=== PATIENT | male | born 1985 | race Caucasian/White ===

== ENCOUNTER → 2017-07-14 13:37 | Emergency (ER) | payer SELFPAY ==
[~2017-07-14 13:37] MED LIST: KCL 10 MEQ/50 ML IVPREMIX* 10 MEQ/50 ML BAG IV SCH; KCL 10 MEQ/50 ML IVPREMIX* 20 MEQ/100 ML BAG ONE; KCL 20 MEQ/100 ML IVPREMIX* 20 MEQ/100 ML BAG IV ONE; NS 0.9% 1000 ML* 1,000 ML IV ONE
[2017-07-14 16:51] LABS: INR 1.87 (0.77-1.02)
[2017-07-14 17:00] LABS: Hematocrit 20 % (42-52); Mean Corpuscular HGB Conc 32 g/dl (31-36); Mean Corpuscular Hemoglobin 25 pg (27-31); Mean Corpuscular Volume 78 fL (80-94); Mean Platelet Volume 8.3 um3 (7.4-10.4); Platelet Count 269 10^3/ul (150-450); Red Cell Distribution Width 26 % (10.5-15)
[2017-07-14 17:03] LABS: EGFR Non-African American 135.1 (>60)
[2017-07-14 17:40] LABS: ABS Basophils 0 10^3/ul (0-0.2); ABS Eosinophils 0 10^3/ul (0-0.6); ABS Lymphocytes 0.5 10^3/ul (1.0-4.8); ABS Neutrophils 8.5 10^3/ul (1.5-7.7); ABS Nucleated RBC 0 10^3/ul; Eosinophil % 0 % (0-6); Lymphocyte % 4.8 % (25-47); Nucleated Red Blood Cells % 0
--- NOTE | 2017-07-14 18:39 | ED ---
Keli Bucio Thomas, scribed for Jhon Black MD on 07/14/17 at 1633 . Skin Complaint - HPI Summary HPI Summary: The patient is a 31 year old male presenting to the emergency department at the advice of his co-workers, who noted his skin and eyes to be yellowish. He does not have any complaints at this time. He says that he only drinks two beers per day. 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 - History of Current Complaint Chief Complaint: EDGeneral Time Seen by Provider: 07/14/17 16:03 Stated Complaint: GENERAL Hx Obtained From: Patient Onset/Duration: Still Present Timing: Constant Current Severity: Mild Pain Intensity: 0 Pain Scale Used: 0-10 Numeric Skin Location: Other: - Diffuse yellow Aggravating Symptom(s): Nothing Alleviating Symptom(s): Nothing Associated Signs & Symptoms: Negative - no symptoms - Allergy/Home Medications Allergies/Adverse Reactions: Allergies Allergy/AdvReac Type Severity Reaction Status Date / Time No Known Allergies Allergy Verified 07/14/17 13:44 Home Medications: Home Medications NK [No Home Medications Reported] 07/14/17 [History Confirmed 07/14/17] PMH/Surg Hx/FS Hx/Imm Hx Endocrine/Hematology History: Denies: Hx Diabetes Cardiovascular History: Denies: Hx Hypertension Infectious Disease History: No Infectious Disease History: Denies: Traveled Outside the [place] in Last 30 Days - Family History Known Family History: Negative: Respiratory Disease - Social History Occupation: Employed Full-time Lives: Alone Alcohol Use: Daily Review of Systems Positive: Fever Positive: Other - Yellow skin All Other Systems Reviewed And Are Negative: Yes Physical Exam - Summary Physical Exam Summary: Appearance: The patient is well-nourished in no acute distress and in no acute pain. Skin: The skin is warm and dry. He is jaundiced. HEENT: The head is normocephalic and atraumatic. The pupils are equal and reactive. The sclerae are icteric. Nares are patent and without drainage. Mouth reveals moist mucous membranes and the throat is without erythema and exudate. The external ears are intact. The ear canals are patent and without drainage. The tympanic membranes are intact. He has poor dentition. Neck: the neck is supple with full range of motion and non-tender. There are no carotid bruits. There is no neck vein distension. Respiratory: Chest is non-tender. Lungs are clear to auscultation and breath sounds are symmetrical and equal. Cardiovascular: Heart is regular rate and rhythm. There is no murmur or rub auscultated. There is no peripheral edema and pulses are symmetrical and equal. Abdomen: The abdomen is soft and non-tender. There are normal bowel sounds heard in all four quadrants and there is no organomegaly palpated. Rectal exam: there are not any hemorrhoids. There is brown stool on the glove. Musculoskeletal: There is no back tenderness noted. Extremities are non-tender with full range of motion. There is good capillary refill. There is no peripheral edema or calf tenderness elicited. Neurological: Patient is alert and oriented to person, place and time. The patient has symmetrical motor strength in all four extremities. Cranial nerves are grossly intact. Deep tendon reflexes are symmetrical and equal in all four extremities. Psychiatric: The patient has an appropriate affect and does not exhibit any anxiety or depression. Triage Information Reviewed: Yes Vital Signs On Initial Exam: Initial Vitals Temp Pulse Resp BP Pulse Ox 100.1 F 126 18 149/77 97 07/14/17 13:40 07/14/17 13:40 07/14/17 13:40 07/14/17 13:40 07/14/17 13:40 Vital Signs Reviewed: Yes Diagnostics - Vital Signs Vital Signs Temp Pulse Resp BP Pulse Ox 07/14/17 15:32 98.5 F 119 18 132/76 100 07/14/17 13:40 100.1 F 126 18 149/77 97 - Laboratory Lab Results: Lab Results 07/14/17 07/14/17 07/14/17 Range/Units 16:35 16:35 16:35 WBC 10.0 (3.5-10.8) 10^3/ul RBC 2.50 L (4.0-5.4) 10^6/ul Hgb 6.2 L* (14.0-18.0) g/dl Hct 20 L (42-52) % MCV 78 L (80-94) fL MCH 25 L (27-31) pg MCHC 32 (31-36) g/dl RDW 26 H (10.5-15) % Plt Count 269 (150-450) 10^3/ul MPV 8.3 (7.4-10.4) um3 Neut % (Auto) 85.3 H (38-83) % Lymph % (Auto) 4.8 L (25-47) % Fult[place] % (Auto) 9.6 H (0-7) % Eos % (Auto) 0 (0-6) % Baso % (Auto) 0.3 (0-2) % Absolute Neuts (auto) 8.5 H (1.5-7.7) 10^3/ul Absolute Lymphs (auto) 0.5 L (1.0-4.8) 10^3/ul Absolute Monos (auto) 1.0 H (0-0.8) 10^3/ul Absolute Eos (auto) 0 (0-0.6) 10^3/ul Absolute Basos (auto) 0 (0-0.2) 10^3/ul Absolute Nucleated RBC 0 10^3/ul Neutrophils % Not Reportable Nucleated RBC % 0 Normal RBC Morphology Not Reportable Polychromasia 2+ Hypochromasia 2+ Anisocytosis 2+ Target Cells 1+ Elliptocytes 1+ INR (Anticoag Therapy) (0.77-1.02) Sodium 127 L (139-145) mmol/L Potassium 2.7 L* (3.5-5.0) mmol/L Chloride 87 L (101-111) mmol/L Carbon Dioxide 28 (22-32) mmol/L Anion Gap 12 H (2-11) mmol/L BUN 1 L (6-24) mg/dL Creatinine 0.68 (0.67-1.17) mg/dL Est GFR ( Amer) 173.8 (>60) Est GFR (Non-Af Amer) 135.1 (>60) BUN/Creatinine Ratio 1.5 L (8-20) Glucose 115 H (70-100) mg/dL Calcium 7.9 L (8.6-10.3) mg/dL Total Bilirubin 13.80 H* (0.2-1.0) mg/dL AST 119 H (13-39) U/L ALT 20 (7-52) U/L Alkaline Phosphatase 175 H (34-104) U/L Ammonia 71 H (16-53) mcmol/L C-Reactive Protein 65.14 H (< 5.00) mg/L Total Protein 6.0 L (6.4-8.9) g/dL Albumin 2.6 L (3.2-5.2) g/dL Globulin 3.4 (2-4) g/dL Albumin/Globulin Ratio 0.8 L (1-3) Acetaminophen < 15 mcg/mL Serum Alcohol 271 H (<10) mg/dL Blood Type Antibody Screen 07/14/17 07/14/17 Range/Units 16:35 17:00 WBC (3.5-10.8) 10^3/ul RBC (4.0-5.4) 10^6/ul Hgb (14.0-18.0) g/dl Hct (42-52) % MCV (80-94) fL MCH (27-31) pg MCHC (31-36) g/dl RDW (10.5-15) % Plt Count (150-450) 10^3/ul MPV (7.4-10.4) um3 Neut % (Auto) (38-83) % Lymph % (Auto) (25-47) % [place] % (Auto) (0-7) % Eos % (Auto) (0-6) % Baso % (Auto) (0-2) % Absolute Neuts (auto) (1.5-7.7) 10^3/ul Absolute Lymphs (auto) (1.0-4.8) 10^3/ul Absolute Monos (auto) (0-0.8) 10^3/ul Absolute Eos (auto) (0-0.6) 10^3/ul Absolute Basos (auto) (0-0.2) 10^3/ul Absolute Nucleated RBC 10^3/ul Neutrophils % Nucleated RBC % Normal RBC Morphology Polychromasia Hypochromasia Anisocytosis Target Cells Elliptocytes INR (Anticoag Therapy) 1.87 H (0.77-1.02) Sodium (139-145) mmol/L Potassium (3.5-5.0) mmol/L Chloride (101-111) mmol/L Carbon Dioxide (22-32) mmol/L Anion Gap (2-11) mmol/L BUN (6-24) mg/dL Creatinine (0.67-1.17) mg/dL Est GFR ( Amer) (>60) Est GFR (Non-Af Amer) (>60) BUN/Creatinine Ratio (8-20) Glucose (70-100) mg/dL Calcium (8.6-10.3) mg/dL Total Bilirubin (0.2-1.0) mg/dL AST (13-39) U/L ALT (7-52) U/L Alkaline Phosphatase (34-104) U/L Ammonia (16-53) mcmol/L C-Reactive Protein (< 5.00) mg/L Total Protein (6.4-8.9) g/dL Albumin (3.2-5.2) g/dL Globulin (2-4) g/dL Albumin/Globulin Ratio (1-3) Acetaminophen mcg/mL Serum Alcohol (<10) mg/dL Blood Type Pending Antibody Screen Pending Result Diagrams: 07/14/17 16:35 07/14/17 16:35 Lab Statement: Any lab studies that have been ordered have been reviewed, and results considered in the medical decision making process. - EKG 18:11 Cardiac Rate: Tachycardia EKG Rhythm: Sinus Tachycardia - at 126 BPM EKG Interpretation: Nonspecific rate-related changes. Course/Dx - Course Course Of Treatment: Mr. Ashley presented at the behest of his co-workers who noticed he was yellow. He looks like a heavy drinker but says that he cut back about 3 months ago to 2-3 beers a day. His BA was 271 here on arrival. He was clearly jaundice on arrival and his T-bili returned at 13. His AST is about 100 and ALT 20. He was found to have a severe microcytic anemia with a normal BUN and admitted to seeing blood with his stool for the last few months frequently. No black BMs and no rectal pain. No hemorrhoids or fissures were seen and the stool was brown. His occult blood is still pending. He was also found to be hyponatremic and hypokalemic. His K is being replaced now. I contacted the hospitalist service for admission but they refused as there is no GI coverage tonight. I elected not to transfuse him yet as this would delay his transfer, he had had no bleeding in 5 hours here and his vitals have not worsened. He came in tachy in the 120s to 130s and improved in to the 110s with IV NS. This is consistent with his anemia but may also be contributed to by his intoxication. He is going to the ED in [facility] accepted by Dr. Smith. He is in serious but stable condition. - Diagnoses Provider Diagnoses: Alcoholic hepatitis, Severe anemia, Hypokalemia, Alcohol intoxication - Critical Care Time Critical Care Time: 30-74 min Discharge - Sign-Out/Discharge Documenting (check all that apply): Discharge/Admit/Transfer - Transfer - Discharge Plan Condition: Stable Disposition: TRANS HIGHER LVL OF CARE FAC Referrals: No Primary Care Phys,NOPCP [Primary Care Provider] - - Billing Disposition and Condition Condition: STABLE Disposition: EMTALA The documentation as recorded by the Keli guzman Thomas accurately reflects the service I personally performed and the decisions made by me, John Black MD.
[2017-07-14 18:59] VITALS: BP 139/78
[2017-07-14 19:09] LABS: Hemoglobin 6.2 g/dl (14.0-18.0)
== END | disposition short-term general hospital (02) ==
LOC: ED 13:37
DX: F10.129 Alcohol abuse with intoxication, unspecified (principal); Y90.8 Blood alcohol level of 240 mg/100 ml or more; R50.9 Fever, unspecified; K70.10 Alcoholic hepatitis without ascites; D64.9 Anemia, unspecified; E87.6 Hypokalemia
CPT/HCPCS: 36415; 80053; 80307; 80320; 80329; 82140; 82272; 85025; 85610; 86140; 86850; 86900; 86901; 93005; 96374; 99284; G0480; J3480